=== PATIENT | male | born 1990 | race Two or more races ===

== ENCOUNTER 2022-01-10 00:20 | Emergency (ER) | payer BC, OTHER ==
[~2022-01-10] VITALS: Ht 152.4 cm; Wt 95.3 kg
[2022-01-10 00:22] VITALS: BP 134/83
[2022-01-10] MEDS ORDERED: IBUPROFEN 800 MG TAB PO ONE (03:00)
[2022-01-10] MEDS ORDERED: ACETAMINOPHEN 500 MG TAB PO ONE (03:00)
[2022-01-10 03:29] LABS: Basophils # (auto) 0.1 10 ^3/uL (0-0.2); Basophils % (auto) 1.1 % (0.0-2.0); Eosinophils # (auto) 0 10 ^3/uL (0-0.8); Eosinophils % (auto) 0.2 % (0.0-7.0); Hematocrit 38.9 % (41.0-53.0); Hemoglobin 13.6 g/dL (13.5-17.5); Lymphocytes # (auto) 0.9 10 ^3/uL (0.4-5.4); Lymphocytes % (auto) 7.3 % (10.0-50.0); Mean Corpuscular Hemoglobin 29.1 pg (28.0-32.0); Mean Corpuscular Hgb Conc. 34.9 g/dL (32.0-36.0); Mean Corpuscular Volume 83.5 fL (80.0-100.0); Monocytes # (auto) 0.8 10 ^3/uL (0-1.3); Monocytes % (auto) 6.5 % (0.0-12.0); Neutrophils # (auto) 10.4 10 ^3/uL (1.6-8.6); Neutrophils % (auto) 84.9 % (37.0-80.0); Nucleated Red Blood Cells % 0.1 %; Red Blood Cells 4.66 10^6/uL (4.5-5.90); Red Cell Distribution Width 13.9 % (11.8-14.3); White Blood Cell 12.3 10^3/uL (4.4-10.8)
[2022-01-10 03:44] LABS: BUN/Creatinine Ratio 8.7; Potassium 3.8 mmol/L (3.5-5.1)
[2022-01-10 03:51] LABS: Urine Bacteria NONE SEEN /hpf (None Seen); Urine Blood Negative /uL (Negative); Urine Specific Gravity 1.023 (1.001-1.035); Urine WBC 1 /hpf (0 - 3)
== END 2022-01-10 05:09 | disposition home or self-care (01) ==
LOC: ER 00:20
DX: J06.9 Acute upper respiratory infection, unspecified (principal); J40 Bronchitis, not specified as acute or chronic; Z20.822 Contact with and (suspected) exposure to COVID-19
CPT/HCPCS: 36415; 71045; 80048; 81001; 85025; 87804; 93005

== ENCOUNTER 2024-06-24 14:12 | Emergency (ER) | payer BC, MEDICAID ==
[~2024-06-24] VITALS: Ht 154.9 cm; Wt 91.4 kg
[2024-06-24 16:26] VITALS: BP 137/92; PULSE 113; RESP 16; TEMP 98.4; O2SAT 98
[2024-06-24] MEDS ORDERED: LIDO5DIS21 TOP (16:37)
[2024-06-24] MEDS ORDERED: TRAM50TA2 PO (16:37)
[2024-06-24] MEDS: methylPREDNISolone SOD SUCC 125 MG/2 ML VL IM ONE (16:40)
[2024-06-24] MEDS: KETOROLAC TROMETH 60MG/2ML VIAL IM ONE (16:46)
== END 2024-06-24 16:38 | disposition home or self-care (01) ==
LOC: ER 14:12
DX: M54.12 Radiculopathy, cervical region (principal); M54.50 Low back pain, unspecified; M79.18 Myalgia, other site
CPT/HCPCS: 96372; 99284; J1885; J2919

== ENCOUNTER 2025-02-18 19:08 | Emergency (ER) | payer MEDICAID, OTHER ==
[~2025-02-18] VITALS: Ht 154.9 cm; Wt 87.4 kg
[~2025-02-18 19:08] MED LIST: LIDO5DIS21 TOP; TRAM50TA2 PO
[2025-02-18] MEDS ORDERED: PROMETHAZINE HCL 6.25 MG/5 ML ORAL SYRUP PO ONE (20:00)
--- NOTE | 2025-02-18 20:04 | ED.PDOC ---
SOB-HPI HPI Comments 34-year-old male came to ER due to cough. Patient states he has been having productive cough with whitish to yellowish phlegm for the past 2 weeks. Patient was seen at urgent care and was prescribed amoxicillin which he took for a week. States cough persisted despite the antibiotics, now with shortness a breath and episodes of near syncopal attacks with coughing Chief Complaint: Cough Time Seen by MD: 20:03 Primary Care Provider: None Reviewed notes: Nurses Notes Information Source: Patient Mode of Arrival: Ambulatory Severity: Moderate Timing: Days Duration: Since onset Context: At Rest Associated Signs and Symptoms: Cough Review of Systems REVIEW OF SYSTEMS: No fever, no chills, or fatigue HEENT: No sore throat, no earache, no congestion, no neck pain. Cardiac: No chest pain. No palpitations. Lungs: (+) shortness of breath, (+) cough. GI: No nausea, no vomiting, no diarrhea, no constipation, no abdominal pain : No dysuria, frequency, or urgency. No hematuria. Musculoskeletal: No joint pain , no joint swelling, no extremity edema. Skin: No rash, no itching. Neuro: No headache, no dizziness, no weakness Vital Signs Vital Signs Date Time Temp Pulse Resp B/P (MAP) Pulse Ox O2 Delivery O2 Flow Rate FiO2 02/19/25 02:28 18 97 Room Air* 0 21 02/19/25 02:00 98.3 85 145/91 (109) 98.3 Physical Exam General: Awake, alert and oriented. No acute distress. Skin: Skin in warm, dry and intact. Appropriate color for ethnicity. Nailbeds pink with no cyanosis. HEENT: The head is normocephalic and atraumatic. Conjunctivae are clear without exudates or hemorrhage. Sclera is non-icteric. EOM are intact. No signs of nyst agmus. Eyelids are normal in appearance without swelling or lesions. Oral mucosa is pink and moist Neck: The neck is supple with normal range of motion. No JVD. Cardiac: Heart rate and rhythm are normal. No murmurs, gallops, or rubs are auscultated. Respiratory: No signs of respiratory distress. Lung sounds are clear in all lobes bilaterally without rales, rhonchi, or wheezes. Abdominal: Abdomen is soft, non-tender without distention. Bowel sounds are present and normoactive in all four quadrants. Extremities: Upper and lower extremities are atraumatic in appearance without deformity or edema. Neurological: The patient is awake, alert and oriented to person, place, and time with normal speech. Speech is clear. There is no facial asymmetry. Psychiatric: Appropriate mood and affect. Good judgement and insight. No visual or auditory hallucinations. Past Medical History PAST MEDICAL HISTORY: DM, HTN, UTI'S Surgical History: Denies all surgeries Family History Family History: Reviewed,noncontributory to illness Social History Smoker: Non-Smoker Alcohol: Denies ETOH Use Drugs: Denies Drug Use Lives In: Home Was a procedure done? Was a procedure done?: No Differential Dx Differential Diagnosis: Anxiety, Bronchitis, COPD, Pneumonia, Respiratory Distress, URI X-Ray, Labs, Meds, VS Vital Signs Date Time Temp Pulse Resp B/P (MAP) Pulse Ox O2 Delivery O2 Flow Rate FiO2 02/19/25 02:28 18 97 Room Air* 0 21 02/19/25 02:00 Room Air* 0 21 02/19/25 02:00 98.3 85 20 145/91 (109) 97 98.3 02/18/25 23:07 97.9 92 12 152/83 (106) 96 97.9 02/18/25 19:25 98.9 106 18 144/92 (109) 97 98.9 02/18/25 19:25 18 97 Room Air* 0 21 Current Medications Medications (Trade) Dose Ordered Sig/Isidra Route Start Time Stop Time Status Last Admin Promethazine HCl/ Dextromethorphan (Phenergan-Dm) 5 ml ONCE ONCE PO 02/19/25 02:12 02/19/25 02:13 DC 02/19/25 02:20 EXAM: XY CHEST TWO VIEWS ROUTINE CLINICAL HISTORY: cough TECHNIQUE: Frontal and lateral views of the chest WID: COMPARISON: None FINDINGS: Lines and tubes: None Chest: The heart size and pulmonary vasculature is within normal limits. No pleural effusion, pneumothorax, or consolidation. The osseous structures are grossly intact. IMPRESSION: No acute cardiopulmonary abnormality. Images Reviewed?: Images reviewed and evaluated by me (Independent interpretation of chest x-ray: No acute disease) Time of 1ST Reevaluation: 19:59 Reevaluation 1ST: Unchanged Patient Education/Counseling: Diagnosis, Treatment Family Education/Counseling: No Family Present Departure 1 Departure Time of Disposition: 22:11 Impression: Primary Impression: Cough Disposition: 01 HOME / SELF CARE / HOMELESS Condition: Stable Additional Instructions: ED DISCHARGE INSTRUCTIONS Instructions: Please read all instructions provided in this packet carefully. Although you have been discharged from the Emergency Department, this does not mean that you have a "clean bill of health". No definitive diagnosis for your symptoms has been made today. It is possible that you are in the process of developing a serious illness. This is why you must return to the ED without fail if any new or worsening symptoms (especially if your symptoms include chest pain, trouble breathing, abdominal pain, fever, headache, confusion, trouble seeing, or trouble walking) It is also very important that you see a primary care doctor within the next 3-5 days to follow up. If you are unable to get an appointment, return to the ED for re-evaluation. SHORTNESS OF BREATH EDUCATION Shortness of breath has many causes. Sometimes conditions such as anxiety can lead to shortness of breath. Some people get mild shortness of breath when they exercise. Trouble breathing also can be a symptom of a serious problem, such as asthma, lung disease, emphysema, heart problems, and pneumonia. If your shortness of breath continues, you may need tests and treatment. Watch for any changes in your breathing and other symptoms. Follow-up care is a ramos part of your treatment and safety. Be sure to make and go to all appointments, and call your doctor if you are having problems. It's also a good idea to know your test results and keep a list of the medicines you take. How can you care for yourself at home? Do not smoke or allow others to smoke around you. If you need help quitting, talk to your doctor about stop-smoking programs and medicines. These can increase your chances of quitting for good. Get plenty of rest and sleep. Take your medicines exactly as prescribed. Call your doctor if you think you are having a problem with your medicine. Find healthy ways to deal with stress. Exercise daily. Get plenty of sleep. Eat regularly and well. When should you call for help? Call 911 anytime you think you may need emergency care. For example, call if: You have severe shortness of breath. You have symptoms of a heart attack. These may include: Chest pain or pressure, or a strange feeling in the chest. Sweating. Shortness of breath. Nausea or vomiting. Pain, pressure, or a strange feeling in the back, neck, jaw, or upper belly or in one or both shoulders or arms. Lightheadedness or sudden weakness. A fast or irregular heartbeat. After you call 911, the gluer machine operator may tell you to chew 1 adult-strength or 2 to 4 low-dose aspirin. Wait for an ambulance. Do not try to drive yourself. Call your doctor now or seek immediate medical care if: Your shortness of breath gets worse or you start to wheeze. Wheezing is a high- pitched sound when you breathe. You wake up at night out of breath or have to prop your head up on several pillows to breathe. You are short of breath after only light activity or while at rest. Watch closely for changes in your health, and be sure to contact your doctor if: You do not get better over the next 1 to 2 days. Credits for Shortness of Breath: Care Instructions Current as of: May 13, 2024 Author: [employer] Staff e-Prescriptions Benzonatate (Benzonatate) 200 Mg Cap 1 CAP PO TID for 5 Days, #30 CAP Prov: AMANDA COLE MD 02/18/25 Albuterol Sulfate (VENTOLIN MDI) 90 Mcg Ih 90 MCG IN TIDPRN PRN for 3 Days, #1 INH Prov: AMANDA COLE MD 02/18/25 Comments Patient well-appearing, nontoxic. Vital signs stable. Advised prompt follow-up with PCP, return to the ED with any new, worsening or concerning symptoms. Critical Care Note Critical Care Time?: No Stability Stability form required: No Heart Score Heart Score: Heart Score Response (Comments) Value History N/A 0 EKG N/A 0 Age N/A 0 Risk Factors N/A 0 Troponin N/A 0 Total 0 I personally scribed for AMANDA COLE MD ([email or web address]) on 02/18/25 at 20:04. Electronically submitted by Trevon Figueroa ([employer]). I personally scribed for AMANDA COLE MD ([email or web address]) on 02/18/25 at 21:01. Electronically submitted by Trevon Figueroa ([employer]). AMANDA COLE MD February 18, 2025 20:04
--- NOTE | 2025-02-18 20:32 | DVH ---
EXAM: XY CHEST TWO VIEWS ROUTINE CLINICAL HISTORY: cough TECHNIQUE: Frontal and lateral views of the chest WID: COMPARISON: None FINDINGS: Lines and tubes: None Chest: The heart size and pulmonary vasculature is within normal limits. No pleural effusion, pneumothorax, or consolidation. The osseous structures are grossly intact. IMPRESSION: No acute cardiopulmonary abnormality.
[2025-02-18] MEDS ORDERED: ALBUAER3 IN (22:13)
[2025-02-18] MEDS ORDERED: BENZ200C64 PO (22:13)
[2025-02-19 02:00] VITALS: BP 145/91; PULSE 85; TEMP 98.3
[2025-02-19] MEDS: PROMETHAZINE-DM 5 ML ORAL SYRUP PO ONE (02:20)
[2025-02-19] MEDS: ALBUTEROL SULF 2.5 MG/0.5ML(0.5%) NEB SOLN NEB ONE (02:27)
[2025-02-19 02:28] VITALS: RESP 18; O2SAT 97
== END 2025-02-19 02:47 | disposition home or self-care (01) ==
LOC: ER 19:12
DX: R05.9 Cough, unspecified (principal); R06.02 Shortness of breath; E11.9 Type 2 diabetes mellitus without complications; I10 Essential (primary) hypertension; Z87.440 Personal history of urinary (tract) infections
CPT/HCPCS: 71046; 94640

== ENCOUNTER 2025-02-22 09:14 | Inpatient (IN) | payer MEDICAID ==
[~2025-02-22] VITALS: Ht 154.9 cm; Wt 88.3 kg
[2025-02-22] MEDS: ACCU-CHEK COMFORT CURVE STRIP VI SCH (01:44)
[~2025-02-22 09:14] MED LIST changes: +ALBUAER3 IN; +BENZ200C64 PO
--- NOTE | 2025-02-22 10:20 | ED.PDOC ---
SOB-HPI HPI Comments 34 year old male presents to the ED with a chief complaint of shortness of breath onset 1 month. Patient states he began experiencing shortness of breath with cough 1 month ago, was seen at urgent care 3 weeks ago and placed on antibiotics. Patient finished antibiotics with no improvement of symptoms. Came to ED on 02/18/25, was prescribed inhaler, has not improved symptoms. Patient is now experiencing substernal chest pain, as well as nausea/vomiting. PMHx HTN, DM. Denies dizziness,headache, dysuria, hematuria, hematemesis, congestion. No other symptoms or modifying factors present at this time. Chief Complaint: Shortness of Breath Time Seen by MD: 10:04 Primary Care Provider: NONE Reviewed notes: Medications, Allergies Information Source: Patient Mode of Arrival: Ambulatory Severity: Moderate Timing: Months Duration: Since onset Context: At Rest PE Risk Factors: None History of: Recent Antibiotic Prehospital treatment: None Modifying Factors: Nothing Associated Signs and Symptoms: Cough, Chest Pain Quality: Pressure Radiation: No Radiation Location: Substernal Past Medical History PAST MEDICAL HISTORY: DM, HTN, UTI'S Surgical History: Denies all surgeries Family History Family History: Reviewed,noncontributory to illness Social History Smoker: Non-Smoker Alcohol: Denies ETOH Use Drugs: Denies Drug Use Lives In: Home Constitutional: denies: chills, diaphoresis, fatigue, fever, malaise, sweats, weakness, others EENTM: denies: blurred vision, double vision, ear bleeding, ear discharge, ear drainage, ear pain, ear ringing, eye pain, eye redness, hearing loss, mouth pain, mouth swelling, nasal discharge, nose bleeding, nose congestion, nose pain, photophobia, tearing, throat pain, throat swelling, voice changes, others Respiratory: reports: cough, shortness of breath; denies: hemoptysis, orthopnea, SOB at rest, SOB with excertion, stridor, wheezing, others Cardiovascular: reports: chest pain; denies: dizzy spells, diaphoresis, Dyspnea on exertion, edema, irregular heart beat, left arm pain, lightheadedness, pal pitations, PND, syncope, others Gastrointestinal: reports: nausea, vomiting; denies: abdomen distended, abdominal pain, blood streaked bowels, constipated, diarrhea, dysphagia, difficulty swallowing, hematemesis, melena, poor appetite, poor fluid intake, rectal bleeding, rectal pain, others Genitourinary: denies: burning, dysuria, flank pain, frequency, hematuria, incontinence, penile discharge, penile sore, pain, testicle pain, testicle swelling, urgency, others Neurological: denies: dizziness, fainting, headache, left sided numbness, left sided weakness, numbness, paresthesia, pre-existing deficit, right sided numbness, right sided weakness, seizure, speech problems, tingling, tremors, weakness, others Musculoskeletal: denies: back pain, gout, joint pain, joint swelling, muscle pain, muscle stiffness, neck pain, others Integumetry: denies: bruises, change in color, change in hair/nails, dryness, laceration, lesions, lumps, rash, wounds, others Allergic/Immunocompromised: denies: Difficulty Healing, Frequent Infections, Hives, Itching, others Hematologic/Lymphatic: denies: anemia, blood clots, easy bleeding, easy bruising, swollen glands, others Endocrine: denies: excessive hunger, excessive sweating, excessive thirst, excessive urination, flushing, intolerance to cold, intolerance to heat, unexp lained weight gain, unexplained weight loss, others Psychiatric: denies: anxiety, bipolar disorder, depression, hopeless, panic disorder, schizophrenia, sleepless, suicidal, others All Other Systems: Reviewed and Negative Physical Exam General Appearance: Moderate Distress, Normal HEENT: Normal ENT Inspection, Pharynx Normal, TMs Normal Neck: Full Range of Motion, Non-Tender, Normal, Normal Inspection Respiratory: Chest Non-Tender, No Accessory Muscle Use, Other (Coarse breath sounds) Cardiovascular: No Edema, No JVD, No Murmur, No Gallop, Normal Peripheral Pulses, Regular Rate/Rhythm Breast Exam: Deferred Gastrointestinal: No Organomegaly, Non Tender, No Pulsatile Mass, Normal Bowel Sounds, Soft Genitalia: Deferred Pelvic: Deferred Rectal: Deferred Extremities: No calf tenderness, Normal capillary refill, Normal inspection, Normal range of motion, Non-tender, No pedal edema Musculoskeletal : Apperance: Normal Neurologic: Alert, field specialist II-XII nml as Tested, No Motor Deficits, Normal Affect, Normal Mood, No Sensory Deficits Cerebellar Function: Normal Reflexes: Normal Skin: Dry, Normal Color, Warm Peripheral Pulses: 3+ Radial (R), 3+ Radial (L) Lymphatic: No Adenopathy EKG EKG : Pulse Rate (adult): 103 Cardiac Rhythm: NSR Was a procedure done? Was a procedure done?: No Differential Dx Differential Diagnosis: Anxiety, Asthma, Bronchitis, CHF, COPD X-Ray, Labs, Meds, VS Vital Signs Date Time Temp Pulse Resp B/P (MAP) Pulse Ox O2 Delivery O2 Flow Rate FiO2 02/22/25 11:44 103 02/22/25 10:30 114 20 96 Room Air* 0 21 02/22/25 10:30 99.8 114 20 117/80 (92) 96 99.8 02/22/25 10:29 18 96 Room Air* 0 21 02/22/25 09:29 103 02/22/25 09:23 98.8 110 20 131/88 (102) 94 98.8 Lab Test 02/22/25 11:14 02/22/25 10:24 02/22/25 09:26 Range/Units Troponin I High Sensitivity < 3 L < 3 L </=54 ng/L White Blood Count 11.5 H 4.4-10.8 10^3/uL Red Blood Count 5.36 4.5-5.90 10^6/uL Hemoglobin 15.2 13.5-17.5 g/dL Hematocrit 45.1 41.0-53.0 % Mean Corpuscular Volume 84.3 80.0-100.0 fL Mean Corpuscular Hemoglobin 28.4 28.0-32.0 pg Mean Corpuscular Hemoglobin Concent 33.7 32.0-36.0 g/dL Red Cell Distribution Width 13.6 11.8-14.3 % Platelet Count 330 140-450 10^3/uL Mean Platelet Volume 8.3 6.9-10.8 fL Neutrophils (%) (Auto) 82.7 H 37.0-80.0 % Lymphocytes (%) (Auto) 10.4 10.0-50.0 % Monocytes (%) (Auto) 5.5 0.0-12.0 % Eosinophils (%) (Auto) 0.8 0.0-7.0 % Basophils (%) (Auto) 0.6 0.0-2.0 % Neutrophils # (Auto) 9.5 H 1.6-8.6 10 ^3/uL Lymphocytes # (Auto) 1.2 0.4-5.4 10 ^3/uL Monocytes # (Auto) 0.6 0-1.3 10 ^3/uL Eosinophils # (Auto) 0.1 0-0.8 10 ^3/uL Basophils # (Auto) 0.1 0-0.2 10 ^3/uL Nucleated Red Blood Cells 0.0 % D-Dimer, Quantitative 0.23 0.0-0.49 mg/L FEU Sodium Level 138 136-145 mmol/L Potassium Level 3.9 3.5-5.1 mmol/L Chloride Level 104 98-107 mmol/L Carbon Dioxide Level 25 20-31 mmol/L Anion Gap 9 5-15 Blood Urea Nitrogen 8 L 9-23 mg/dL Creatinine 0.92 0.700-1.30 mg/dL Glomerular Filtration Rate Calc 111 >90 mL/min BUN/Creatinine Ratio 8.7 L 10.0-20.0 Serum Glucose 158 H 74-106 mg/dL Calcium Level 10.0 8.7-10.4 mg/dL POC Glucose 186 H 70-106 mg/dl Current Medications Medications (Trade) Dose Ordered Sig/Isidra Route Start Time Stop Time Status Last Admin Albuterol (Ventolin Medneb) 5 mg ONCE ONCE NEB 02/22/25 10:15 02/22/25 10:17 DC 02/22/25 10:28 Ipratropium [place] (Atrovent Medneb) 0.5 mg ONCE ONCE NEB 02/22/25 10:15 02/22/25 10:17 DC 02/22/25 10:28 Ceftriaxone Sodium 50 ml @ 100 mls/hr ONCE ONCE IV 02/22/25 10:15 02/22/25 10:44 DC 02/22/25 10:36 Methylprednisolone Sodium Succinate (Solu Medrol) 40 mg ONCE ONCE IV 02/22/25 11:00 02/22/25 11:01 DC 02/22/25 10:51 Patient alert. Complaining of shortness a breath. Has been battling congestion for three weeks. Vitals stable. He does have increased heart rate. Blood sugar elevated. Recently diagnosed with diabetes. WBC slightly elevated. Hemoglobin within normal limits. Cardiac marker within normal limits. Establish intravenous access. Possible pneumonitis. Was given Rocephin. Was given azithromycin. Was given steroid. Was given breathing treatment. Reviewed his previous visit to other facilities. He was seen in this ER recently. Explained to the patient. Continue monitoring. [place] [id number] Ph: [phone] DIAGNOSTIC IMAGING Diagnostic Imaging Report : [id number] Signed PATIENT: HUMAIRA SIMON ACCT: [id number] UNIT: [id number] : 1990 LOC: ER ROOM / BED: / AGE / SEX: 34 / M ADM STATUS: REG ER SERVICE 1015 ORDERING PHYSICIAN: EDEN WOODRUFF MD PROCEDURE(s): CXRP - CHEST PORTABLE REASON: sob ORDER NUMBER(s): [id number], ACCESSION NUMBER(s): [id number] EXAM: XY CHEST PORTABLE Indication: sob Technique: Single frontal view of the chest was obtained Comparison: CHEST XRAY 1 VIEW on DOS: 01/10/22, CXR1 on DOS: 01/10/22 FINDINGS: Lines and Tubes: None Lungs: No focal consolidation. Pleura: No effusion. No pneumothorax. Cardiomediastinal contours: Unremarkable Bones: No acute osseous abnormality. IMPRESSION: No acute cardiopulmonary disease. ATED BY: JONATHAN SIMON MD DICTATED DATE/TIME: 02/22/251203 SIGNED BY: JONATHAN SIMON MD SIGNED DATE/TIME: 02/22/251203 CC: Time of 1ST Reevaluation: 10:34 Reevaluation 1ST: Unchanged Patient Education/Counseling: Diagnosis, Treatment, Prognosis Family Education/Counseling: No Family Present Departure 1 Departure Time of Disposition: 11:47 Impression: Primary Impression: Pneumonitis Additional Impression: Uncontrolled diabetes mellitus Qualified Codes: E13.65 - Other specified diabetes mellitus with hyperglyce mouna Disposition: 09 ADMITTED INPATIENT Admit to: Med Surg Condition: Guarded Critical Care Note Critical Care Time?: Yes (45 min-critical care time only) Critical care comment: Shortness a breath upon ambulating started steroid breathing treatment Stability Stability form required: No Heart Score Heart Score: Heart Score Response (Comments) Value History N/A 0 EKG N/A 0 Age N/A 0 Risk Factors N/A 0 Troponin N/A 0 Total 0 I personally scribed for EDEN WOODRUFF MD ([email or web address]) on 02/22/25 at 10:20. Electronically submitted by Layne Joshi ([email or web address]). I personally scribed for EDEN WOODRUFF MD ([email or web address]) on 02/22/25 at 11:44. Electronically submitted by Layne Joshi ([email or web address]). I personally scribed for EDEN WOODRUFF MD ([email or web address]) on 02/22/25 at 13:02. Electronically submitted by Layne Joshi ([email or web address]). EDEN WOODRUFF MD February 22, 2025 10:20
[2025-02-22] MEDS: ALBUTEROL SULF 2.5 MG/0.5ML(0.5%) NEB SOLN NEB ONE (10:28)
[2025-02-22] MEDS: IPRATROPIUM BROM 0.5 MG/2.5ML INH SOL NEB ONE (10:28)
[2025-02-22] MEDS: ALBUTEROL SULF 2.5 MG/0.5ML(0.5%) NEB SOLN ONE (10:29)
[2025-02-22] MEDS: IPRATROPIUM BROM 0.5 MG/2.5ML INH SOL ONE (10:29)
[2025-02-22 10:30] VITALS: PULSE 114; RESP 20; O2SAT 96
[2025-02-22] MEDS: cefTRIAXone 1GM/50ML D5W 50 ML IV ONE (10:36)
[2025-02-22] MEDS: methylPREDNISolone SOD SUCC 125 MG/2 ML VL IV ONE (10:36)
[2025-02-22 10:39] LABS: Basophils # (auto) 0.1 10 ^3/uL (0-0.2); Basophils % (auto) 0.6 % (0.0-2.0); Eosinophils # (auto) 0.1 10 ^3/uL (0-0.8); Eosinophils % (auto) 0.8 % (0.0-7.0); Hematocrit 45.1 % (41.0-53.0); Hemoglobin 15.2 g/dL (13.5-17.5); Lymphocytes # (auto) 1.2 10 ^3/uL (0.4-5.4); Lymphocytes % (auto) 10.4 % (10.0-50.0); Mean Corpuscular Hemoglobin 28.4 pg (28.0-32.0); Mean Corpuscular Hgb Conc. 33.7 g/dL (32.0-36.0); Mean Corpuscular Volume 84.3 fL (80.0-100.0); Monocytes # (auto) 0.6 10 ^3/uL (0-1.3); Monocytes % (auto) 5.5 % (0.0-12.0); Neutrophils # (auto) 9.5 10 ^3/uL (1.6-8.6); Neutrophils % (auto) 82.7 % (37.0-80.0); Platelet Count (auto) 330 10^3/uL (140-450); Red Blood Cells 5.36 10^6/uL (4.5-5.90); Red Cell Distribution Width 13.6 % (11.8-14.3); White Blood Cell 11.5 10^3/uL (4.4-10.8)
[2025-02-22 10:47] LABS: Chloride 104 mmol/L (98-107); Potassium 3.9 mmol/L (3.5-5.1); Sodium 138 mmol/L (136-145)
[2025-02-22 10:48] LABS: Anion Gap 9 (5-15); Carbon Dioxide 25 mmol/L (20-31)
[2025-02-22] MEDS: methylPREDNISolone SOD SUCC 40 MG/ML VL IV ONE (10:51)
[2025-02-22 10:53] LABS: BUN/Creatinine Ratio 8.7 (10.0-20.0); Blood Urea Nitrogen 8 mg/dL (9-23); Glucose 158 mg/dL (74-106)
--- NOTE | 2025-02-22 12:06 | DVH ---
EXAM: XY CHEST PORTABLE Indication: sob Technique: Single frontal view of the chest was obtained Comparison: CHEST XRAY 1 VIEW on DOS: 01/10/22, CXR1 on DOS: 01/10/22 FINDINGS: Lines and Tubes: None Lungs: No focal consolidation. Pleura: No effusion. No pneumothorax. Cardiomediastinal contours: Unremarkable Bones: No acute osseous abnormality. IMPRESSION: No acute cardiopulmonary disease.
[2025-02-22] MEDS ORDERED: MORPHINE SULFATE INJ 2 MG/ml SYRG IV PRN (13:00)
[2025-02-22] MEDS ORDERED: HYDROcodone-ACET 5/325MG TAB PO PRN (13:00)
[2025-02-22] MEDS ORDERED: DOCUSATE SOD 100 MG CAP PO PRN (13:00)
[2025-02-22] MEDS ORDERED: METF-372 PO (13:04)
[2025-02-22] MEDS ORDERED: GLIP5TAB21 PO (13:04)
[2025-02-22] MEDS ORDERED: LISI10TA34 PO (13:04)
[2025-02-22] MEDS ORDERED: DEXTROSE (50%) 50ML SYRG IV PRN (13:15)
--- NOTE | 2025-02-22 13:23 | DVHHP2 ---
History of Present Illness Reason for Visit: Shortness of breath History of Present Illness Chencho Bhatti is a 34-year-old male with past medical history of hypertension, and diabetes, who came in for cough and shortness of breath. Patient states he has had the cough for about 1 months. he went to urgent care weeks ago, was gi roxane antibiotics. Thought he was doing better, then the cough came back. He came to ER on 02/18/2025 for the cough. He was given a prescription and sent home. He came back today stating his symptoms have not improved. Cardiovascular: HTN Endocrine: Diabetes Past Surgical History: None Smoke: No ALCOHOL: none Drugs: None Lives: with Family Domestic Violence: Neg Review of Systems Constitutional: No: Fever, Chills, Sweats, Weakness, Malaise, Other Eyes: No: Pain, Vision change, Conjunctivae inflammation, Eyelid inflammation, Other, Redness ENT: No: Ear pain, Ear discharge, Nose pain, Nose discharge, Nose congestion, Mouth pain, Mouth swelling, Throat pain, Throat swelling, Other Respiratory: Cough, Shortness of breath, SOB with excertion, Wheezing, Sputum (yellow/green); No: Dry, Hemoptysis, Pleuritic Pain, Wheezing, Other Cardiovascular: No: Chest Pain, Palpitations, Orthopnea, Paroxysmal Noc. Dyspnea, Edema, Lt Headedness, Other Gastrointestinal: No: Nausea, Vomiting, Abdominal Pain, Diarrhea, Constipation, Melena, Hematochezia, Other Genitourinary: No Dysuria, No Frequency, No Incontinence, No Hematuria, No Retention, No Other Musculoskeletal: No: other, neck pain, shoulder pain, arm pain, back pain, hand pain, leg pain, foot pain Skin: No: Rash, Lesions, Jaundice, Bruising, Other Neurological: No: Weakness, Numbness, Incoordination, Change in speech, Confusion, Seizures, Other Allergies: Coded Allergies: NO KNOWN ALLERGIES (Unverified , 01/10/22) Medications Current Medications Medications Dose Ordered Sig/Isidra Route Start Time Stop Time Status Last Admin Dose Admin Acetaminophen/ Hydrocodone Bitart 1 tab Q4HP PRN PO 02/22/25 13:00 UNV Ondansetron HCl 4 mg Q4HP PRN IV 02/22/25 13:00 UNV Docusate Sodium 100 mg BIDPRN PRN PO 02/22/25 13:00 UNV Acetaminophen 650 mg Q6HP PRN PO 02/22/25 13:00 UNV Morphine Sulfate 2 mg Q4HPRN PRN IV 02/22/25 13:00 UNV Ceftriaxone Sodium 50 ml @ 100 mls/hr DAILY@09 IV 02/23/25 09:00 UNV Albuterol 2.5 mg Q6HWA NEB 02/22/25 18:00 UNV Ipratropium D [place] 0.5 mg Q6HWA NEB 02/22/25 18:00 UNV Methylprednisolone Sodium Succinate 40 mg BID IV 02/22/25 22:00 UNV Exam Vital Signs Vital Signs Date Time Temp Pulse Resp B/P (MAP) Pulse Ox O2 Delivery O2 Flow Rate FiO2 02/22/25 11:44 103 02/22/25 10:30 20 96 Room Air* 0 21 02/22/25 10:30 99.8 117/80 (92) 99.8 General Appearance: Alert, Oriented X3, Cooperative, mild distress HEENT: Atraumatic, PERRLA Respiratory: Other (Diminshed breath sounds, wheezing) Cardiovascular: Regular rate, Normal S1, Normal S2, No murmurs Abdominal: Normal bowel sounds, Soft, No tenderness Extremities: No clubbing, No cyanosis, No edema, Normal pulses, No tenderness/swelling Skin: No rashes, No breakdown, No significant lesion Neuro: Normal gait, Normal speech, Strength at 5/5 X4 ext Psych/Mental Status: Mental status NL, Mood NL Labs/Xrays Labs Test 02/22/25 11:14 02/22/25 10:24 02/22/25 09:26 Range/Units Troponin I High Sensitivity < 3 L </=54 ng/L White Blood Count 11.5 H 4.4-10.8 10^3/uL Red Blood Count 5.36 4.5-5.90 10^6/uL Hemoglobin 15.2 13.5-17.5 g/dL Hematocrit 45.1 41.0-53.0 % Mean Corpuscular Volume 84.3 80.0-100.0 fL Mean Corpuscular Hemoglobin 28.4 28.0-32.0 pg Mean Corpuscular Hemoglobin Concent 33.7 32.0-36.0 g/dL Red Cell Distribution Width 13.6 11.8-14.3 % Platelet Count 330 140-450 10^3/uL Mean Platelet Volume 8.3 6.9-10.8 fL Neutrophils (%) (Auto) 82.7 H 37.0-80.0 % Lymphocytes (%) (Auto) 10.4 10.0-50.0 % Monocytes (%) (Auto) 5.5 0.0-12.0 % Eosinophils (%) (Auto) 0.8 0.0-7.0 % Basophils (%) (Auto) 0.6 0.0-2.0 % Neutrophils # (Auto) 9.5 H 1.6-8.6 10 ^3/uL Lymphocytes # (Auto) 1.2 0.4-5.4 10 ^3/uL Monocytes # (Auto) 0.6 0-1.3 10 ^3/uL Eosinophils # (Auto) 0.1 0-0.8 10 ^3/uL Basophils # (Auto) 0.1 0-0.2 10 ^3/uL Nucleated Red Blood Cells 0.0 % D-Dimer, Quantitative 0.23 0.0-0.49 mg/L FEU Sodium Level 138 136-145 mmol/L Potassium Level 3.9 3.5-5.1 mmol/L Chloride Level 104 98-107 mmol/L Carbon Dioxide Level 25 20-31 mmol/L Anion Gap 9 5-15 Blood Urea Nitrogen 8 L 9-23 mg/dL Creatinine 0.92 0.700-1.30 mg/dL Glomerular Filtration Rate Calc 111 >90 mL/min BUN/Creatinine Ratio 8.7 L 10.0-20.0 Serum Glucose 158 H 74-106 mg/dL Calcium Level 10.0 8.7-10.4 mg/dL POC Glucose 186 H 70-106 mg/dl EXAM: XY CHEST PORTABLE FINDINGS: Lines and Tubes: None Lungs: No focal consolidation. Pleura: No effusion. No pneumothorax. Cardiomediastinal contours: Unremarkable Bones: No acute osseous abnormality. IMPRESSION: No acute cardiopulmonary disease. 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 Procedure Category Date Status Time Admit ADMIT 02/22/25 Transmitted 13:00 Code Status CODE 02/22/25 Transmitted 13:00 2 Gm Sodium Diet DIET 02/22/25 Transmitted Lunch Hydrocodone-Acet PHA 02/22/25 Logged 5/325mg Tab ([place] 13:00 Ondansetron Hcl PHA 02/22/25 Logged (Zofran) 13:00 Docusate Sodium PHA 02/22/25 Logged Capsule (Colace 13:00 Complete Blood Count LAB 02/23/25 Verified 04:00 Comprehensive LAB 02/23/25 Verified Metabolic Panel 04:00 Condition: Serious SAMMIE 02/22/25 In Process 13:00 Acetaminophen Tablet PHA 02/22/25 Logged (Tylenol Tablet) 13:00 Morphine Sulfate PHA 02/22/25 Logged Injection 13:00 Ceftriaxone 1gm/50ml PHA 02/23/25 Logged D5w (Rocephin) 09:00 Albuterol Medneb PHA 02/22/25 Logged (Ventolin Medneb) 18:00 Ipratropium Medneb PHA 02/22/25 Logged (Atrovent Medneb) 18:00 Methylprednisolone PHA 02/22/25 Logged Sod Succ (Solu Medrol 22:00 Glucose Blood PHA 02/22/25 Logged (Accu-Chek Comfort 17:00 Insulin R (Human) PHA 02/22/25 Logged (Insulin R) 22:00 Moderate Insulin Ss PHA 02/22/25 Transmitted 17:00 Dextrose 50% Syringe PHA 02/22/25 Transmitted 13:15 Glipizide Tablet PHA 02/22/25 Verified (Glucotrol Tablet) 22:00 (Nf) Lisinopril PHA 02/23/25 Verified 10:00 Date of Service: February 22, 2025 Billing Provider: GENO MA Common Visit Codes: [id number] INP/OBS CARE (MOD) GENO MA February 22, 2025 13:23
[2025-02-22 14:13] VITALS: O2SAT 97
[2025-02-22 14:14] VITALS: BP 127/75; PULSE 105; RESP 16; TEMP 99.5; O2SAT 97
[2025-02-22] MEDS: InsuLIN REG 1unit/0.01ml Soln (100units/ml) SC SCH ×2 (17:05→22:00)
[2025-02-22 18:37] VITALS: PULSE 100; RESP 18; O2SAT 95
[2025-02-22] MEDS: IPRATROPIUM BROM 0.5 MG/2.5ML INH SOL NEB SCH (18:37)
[2025-02-22] MEDS: ALBUTEROL SULF 2.5 MG/0.5ML(0.5%) NEB SOLN NEB SCH (18:37)
[2025-02-22 18:43] VITALS: PULSE 102; RESP 18; O2SAT 99
[2025-02-22] MEDS: AZITHROMYCIN 500MG/ 250ML 250 ML IV ONE (19:30)
[2025-02-22] MEDS ORDERED: methylPREDNISolone SOD SUCC 125 MG/2 ML VL IV SCH (22:00)
[2025-02-22] MEDS ORDERED: methylPREDNISolone SOD SUCC 40 MG/ML VL IV SCH (22:00)
[2025-02-22] MEDS: glipiZIDE 5 MG TAB PO SCH (22:00)
[2025-02-22] MEDS: methylPREDNISolone SOD SUCC 40 MG/ML VL IV SCH (22:00)
[2025-02-23] VITALS (9 sets, daily range): BP systolic 79–122; BP diastolic 45–69; PULSE 70–91; RESP 16–24; TEMP 97.5–98.1; O2SAT 94–100
[2025-02-23] MEDS: ACETAMINOPHEN 325 MG TAB PO PRN (01:47)
[2025-02-23 04:59] LABS: Basophils # (auto) 0 10 ^3/uL (0-0.2); Basophils % (auto) 0.2 % (0.0-2.0); Eosinophils # (auto) 0.1 10 ^3/uL (0-0.8); Eosinophils % (auto) 0.5 % (0.0-7.0); Hematocrit 41.2 % (41.0-53.0); Hemoglobin 13.7 g/dL (13.5-17.5); Lymphocytes # (auto) 2.7 10 ^3/uL (0.4-5.4); Lymphocytes % (auto) 23.4 % (10.0-50.0); Mean Corpuscular Hemoglobin 28.4 pg (28.0-32.0); Mean Corpuscular Hgb Conc. 33.3 g/dL (32.0-36.0); Mean Corpuscular Volume 85.2 fL (80.0-100.0); Monocytes % (auto) 8.6 % (0.0-12.0); Neutrophils # (auto) 7.7 10 ^3/uL (1.6-8.6); Neutrophils % (auto) 67.3 % (37.0-80.0); Nucleated Red Blood Cells % 0.1 %; Platelet Count (auto) 300 10^3/uL (140-450); Red Blood Cells 4.83 10^6/uL (4.5-5.90); White Blood Cell 11.5 10^3/uL (4.4-10.8)
[2025-02-23 05:41] LABS: Albumin 4.5 g/dL (3.2-4.8); Alkaline Phosphatase 64 U/L (46-116); Anion Gap 11 (5-15); Aspartate Aminotransferase 19 U/L (13-40); BUN/Creatinine Ratio 13.5 (10.0-20.0); Bilirubin, Total 0.9 mg/dL (0.2-1.0); Blood Urea Nitrogen 14 mg/dL (9-23); Carbon Dioxide 26 mmol/L (20-31); Chloride 101 mmol/L (98-107); Potassium 3.9 mmol/L (3.5-5.1); Sodium 138 mmol/L (136-145); Total Protein 6.8 g/dL (5.7-8.2)
[2025-02-23 05:43] LABS: Alanine Aminotransferase 53 U/L (7-40); Glucose 166 mg/dL (74-106)
[2025-02-23] MEDS: cefTRIAXone 1GM/50ML D5W 50 ML IV SCH (08:48)
[2025-02-23] MEDS: ONDANSETRON HCL 4 MG/2 ML VIAL IV PRN (08:48)
--- NOTE | 2025-02-23 08:59 | ECG ---
[facility] Test Date: 2025-02-22 Test Time: 09:29:03 Pat Name: HUMAIRA SIMON Department: ER Room: [facility] Gender: M Drywall Contractor: YU : 1990 Requested By: EDEN WOODRUFF Order Number: [id number] Reading MD: Daquan Abebe Measurements Intervals Ward Rate: 103 P: 79 OH: 126 QRS: 80 QRSD: 76 T: 36 QT: 322 QTc: 422 Interpretive Statements Sinus tachycardia Electronically Signed On 02-24-2025 12:45:15 PDT by Daquan Abebe Please click the below link to view image of tracing.
[2025-02-23 09:06] LABS: Rapid Influenza A Negative (Negative); Rapid Influenza B Negative (Negative)
[2025-02-23 09:07] LABS: COVID19 ANTIGEN SOFIA FIA NEGATIVE (NEGATIVE)
[2025-02-23] MEDS ORDERED: PATIENTS OWN MEDICATION (Lisinopril 1 TAB) PO SCH (10:00)
[2025-02-23] MEDS: AZITHROMYCIN 500MG/ 250ML 250 ML IV SCH (10:20)
[2025-02-23] MEDS: LISINOPRIL 20 MG TAB PO SCH (10:23)
--- NOTE | 2025-02-23 12:18 | DVHPN2 ---
Subjective 34-year-old male with history of hypertension diabetes who had upper respiratory infection for few days now and then he was seen here in ER was sent home on an inhaler but he did not get better so he came back Chest x-ray is negative for pneumonia He is also negative for COVID and influenza He is still having significant cough productive of yellow sputum Changes from previous H/P or p: Changes Eyes: No Pain, No Vision change, No Conjunctivae inflammation, No Eyelid inflammation, No Other, No Redness ENT: No Ear pain, No Ear discharge, No Nose pain, No Nose discharge, No Nose congestion, No Mouth pain, No Mouth swelling, No Throat pain, No Throat swelling, No Other Cardiovascular: No Chest Pain, No Palpitations, No Orthopnea, No Paroxysmal Noc. Dyspnea, No Edema, No Lt Headedness, No Other Respiratory: Cough; No Dry; Shortness of breath, SOB with excertion, Wheezing; No Hemoptysis, No Pleuritic Pain; Sputum (yellow/green); No Other Gastrointestinal: No Nausea, No Vomiting, No Abdominal Pain, No Diarrhea, No Constipation, No Melena, No Hematochezia, No Other Genitourinary: No Dysuria, No Frequency, No Incontinence, No Hematuria, No Retention, No Other Musculoskeletal: No other, No neck pain, No shoulder pain, No arm pain, No back pain, No hand pain, No leg pain, No foot pain Skin: No Rash, No Lesions, No Jaundice, No Bruising, No Other Objective Vitals Vital Signs Date Time Temp Pulse Resp B/P (MAP) Pulse Ox O2 Delivery O2 Flow Rate FiO2 02/23/25 10:23 108/57 02/23/25 08:54 97.7 70 24 98 97.7 02/23/25 06:02 Room Air* 0 21 Intake/Output Intake and Output 02/23/25 07:00 Intake Total 50 ml Balance 50 ml Intake IV Total 50 ml General Appearance: Alert, Oriented X3, Cooperative, mild distress Lungs: Clear to auscultation, Normal air movement, Other (Clear to auscultation bilateral) Cardiovascular: Regular rate, Normal S1, Normal S2, No murmurs Abdomen: Normal bowel sounds, Soft, No tenderness Extremities: No edema Medications Current Medications Medications Dose Ordered Sig/Isidra Route Start Time Stop Time Status Last Admin Dose Admin Acetaminophen/ Hydrocodone Bitart 1 tab Q4HP PRN PO 02/22/25 13:00 Ondansetron HCl 4 mg Q4HP PRN IV 02/22/25 13:00 02/23/25 08:48 4 MG Docusate Sodium 100 mg BIDPRN PRN PO 02/22/25 13:00 Acetaminophen 650 mg Q6HP PRN PO 02/22/25 13:00 02/23/25 01:47 650 MG Morphine Sulfate 2 mg Q4HPRN PRN IV 02/22/25 13:00 Ceftriaxone Sodium 50 ml @ 100 mls/hr DAILY@09 IV 02/23/25 09:00 02/23/25 08:48 100 MLS/HR Albuterol 2.5 mg Q6HWA NEB 02/22/25 18:00 02/23/25 06:08 2.5 MG Ipratropium [place] 0.5 mg Q6HWA NEB 02/22/25 18:00 02/23/25 06:09 0.5 MG Methylprednisolone Sodium Succinate 40 mg BID IV 02/22/25 22:00 UNV Diagnostic Test (Pha) 1 strip ACHS 02/22/25 17:00 02/23/25 11:30 1 STRIP Insulin Human Regular HS SC 02/22/25 22:00 Insulin Human Regular AC SC 02/22/25 17:00 02/23/25 06:19 2 UNITS Dextrose 50 ml UD PRN IV 02/22/25 13:15 Glipizide 5 mg BID PO 02/22/25 22:00 02/23/25 10:22 5 MG Patient Own Medication 1 tab DAILY PO 02/23/25 10:00 UNV Lisinopril 10 mg DAILY PO 02/23/25 10:00 02/23/25 10:23 10 MG Methylprednisolone Sodium Succinate 40 mg BID IV 02/22/25 22:00 02/23/25 08:48 40 MG Azithromycin 250 ml @ 125 mls/hr DAILY IV 02/23/25 10:00 02/23/25 10:20 125 MLS/HR Laboratory Results Laboratory Tests 02/23/25 04:31 Chemistry Test 02/23/25 04:31 Albumin 4.5 g/dL (3.2-4.8) Calcium Level 9.0 mg/dL (8.7-10.4) Total Protein 6.8 g/dL (5.7-8.2) LFT Test 02/23/25 04:31 Alanine Aminotransferase (ALT) 53 U/L (7-40) H Alkaline Phosphatase 64 U/L (46-116) Aspartate Amino Transferase (AST) 19 U/L (13-40) Total Bilirubin 0.9 mg/dL (0.2-1.0) Assessment/Plan Assessment/Plan Acute upper respiratory infection Acute bronchitis Hypertension Type 2 diabetes Plan Continue IV antibiotics Oxygen as needed Med neb treatments as needed Robitussin DM as needed IV steroids Hold oral diabetes medications Start Lantus 10 units twice a day Accu-Cheks and sliding scale regular insulin Full code Advance directives discussed for 16 minutes Plan discussed with: Patient Date of Service: February 23, 2025 Billing Provider: KENNETH ELLIOTT MD Common Visit Codes: [id number] INP/OBS CARE(HIGH) Secondary Visit Codes: [id number] CARE PLAN 30 MINUTES KENNETH ELLIOTT MD February 23, 2025 12:18
[2025-02-23] MEDS: INSULIN LANTUS (GLARGINE) 1 /0.01ml (100units/ml) SC ONE (15:20)
[2025-02-23] MEDS: guaiFENesin-DM 100/10mg/5ml SYR PO PRN (17:46)
[2025-02-23] MEDS: INSULIN LANTUS (GLARGINE) 1 /0.01ml (100units/ml) SC SCH (22:29)
[2025-02-24] VITALS (13 sets, daily range): BP systolic 103–138; BP diastolic 55–78; PULSE 73–102; RESP 16–19; TEMP 97.5–97.9; O2SAT 93–100
--- NOTE | 2025-02-24 16:56 | DVHPN2 ---
Subjective Better Changes from previous H/P or p: Changes Eyes: No Pain, No Vision change, No Conjunctivae inflammation, No Eyelid inflammation, No Other, No Redness ENT: No Ear pain, No Ear discharge, No Nose pain, No Nose discharge, No Nose congestion, No Mouth pain, No Mouth swelling, No Throat pain, No Throat swelling, No Other Cardiovascular: No Chest Pain, No Palpitations, No Orthopnea, No Paroxysmal Noc. Dyspnea, No Edema, No Lt Headedness, No Other Respiratory: Cough; No Dry; Shortness of breath, SOB with excertion, Wheezing; No Hemoptysis, No Pleuritic Pain; Sputum (yellow/green); No Other Gastrointestinal: No Nausea, No Vomiting, No Abdominal Pain, No Diarrhea, No Constipation, No Melena, No Hematochezia, No Other Genitourinary: No Dysuria, No Frequency, No Incontinence, No Hematuria, No Retention, No Other Musculoskeletal: No other, No neck pain, No shoulder pain, No arm pain, No back pain, No hand pain, No leg pain, No foot pain Skin: No Rash, No Lesions, No Jaundice, No Bruising, No Other Objective Vitals Vital Signs Date Time Temp Pulse Resp B/P (MAP) Pulse Ox O2 Delivery O2 Flow Rate FiO2 02/24/25 13:00 97.9 85 17 116/66 (83) 97 97.9 02/24/25 11:20 Room Air 0.0 02/24/25 11:20 21 Intake/Output Intake and Output 02/24/25 07:00 Intake Total 800 ml Balance 800 ml Intake Oral 500 ml IV Total 300 ml # Voids 3 # Bowel Movements 1 General Appearance: Alert, Oriented X3, Cooperative, mild distress Lungs: Clear to auscultation, Normal air movement, Other (Clear to auscultation bilateral) Cardiovascular: Regular rate, Normal S1, Normal S2, No murmurs Abdomen: Normal bowel sounds, Soft, No tenderness Extremities: No edema Medications Current Medications Medications Dose Ordered Sig/Isidra Route Start Time Stop Time Status Last Admin Dose Admin Acetaminophen/ Hydrocodone Bitart 1 tab Q4HP PRN PO 02/22/25 13:00 Ondansetron HCl 4 mg Q4HP PRN IV 02/22/25 13:00 02/23/25 08:48 4 MG Docusate Sodium 100 mg BIDPRN PRN PO 02/22/25 13:00 Acetaminophen 650 mg Q6HP PRN PO 02/22/25 13:00 02/23/25 01:47 650 MG Morphine Sulfate 2 mg Q4HPRN PRN IV 02/22/25 13:00 Ceftriaxone Sodium 50 ml @ 100 mls/hr DAILY@09 IV 02/23/25 09:00 02/24/25 09:33 100 MLS/HR Albuterol 2.5 mg Q6HWA NEB 02/22/25 18:00 02/24/25 11:20 2.5 MG Ipratropium [place] 0.5 mg Q6HWA NEB 02/22/25 18:00 02/24/25 11:20 0.5 MG Methylprednisolone Sodium Succinate 40 mg BID IV 02/22/25 22:00 UNV Diagnostic Test (Pha) 1 strip ACHS 02/22/25 17:00 02/24/25 11:13 1 STRIP Insulin Human Regular HS SC 02/22/25 22:00 02/23/25 22:28 4 UNITS Insulin Human Regular AC SC 02/22/25 17:00 02/24/25 11:18 6 UNITS Dextrose 50 ml UD PRN IV 02/22/25 13:15 Patient Own Medication 1 tab DAILY PO 02/23/25 10:00 UNV Lisinopril 10 mg DAILY PO 02/23/25 10:00 02/24/25 09:33 10 MG Methylprednisolone Sodium Succinate 40 mg BID IV 02/22/25 22:00 02/24/25 09:31 40 MG Azithromycin 250 ml @ 125 mls/hr DAILY IV 02/23/25 10:00 02/24/25 11:12 125 MLS/HR Guaifenesin/ Dextromethorphan 10 ml Q4HP PRN PO 02/23/25 12:15 02/24/25 12:13 10 ML Insulin Glargine 20 units BID@0700,2200 SC 02/24/25 22:00 Laboratory Results Laboratory Tests 02/23/25 04:31 Microbiology Microbiology Date/Time Source Procedure Growth Status 02/23/25 13:11 Sputum Gram Stain - Final Resulted 02/23/25 13:11 Sputum Respiratory Culture - Preliminary Resulted 02/22/25 13:20 Blood Blood Culture - Preliminary NO GROWTH AFTER 48 HOURS OF INCUBATION. Resulted Assessment/Plan Assessment/Plan Acute upper respiratory infection Acute bronchitis Hypertension Type 2 diabetes Plan Continue IV antibiotics Oxygen as needed Med neb treatments as needed Robitussin DM as needed IV steroids Hold oral diabetes medications Start Lantus 10 units twice a day Accu-Cheks and sliding scale regular insulin Full code Advance directives discussed for 16 minutes 02/24/2025: Continue the current management with antibiotics and med neb treatments and oxygen as needed IV steroids Lantus Accu-Cheks Monitor closely Robitussin as needed Plan discussed with: Patient My Orders Orders - KENNETH ELLIOTT MD Procedure Category Date Status Time Insulin Lantus PHA 02/24/25 In Process (Glargine) (Lantus) 22:00 Date of Service: February 24, 2025 Billing Provider: KENNETH ELLIOTT MD Common Visit Codes: [id number] INP/OBS CARE(HIGH) KENNETH ELLIOTT MD February 24, 2025 16:56
[2025-02-24] MEDS: INSULIN LANTUS (GLARGINE) 1 /0.01ml (100units/ml) SC SCH (22:07)
[2025-02-25] VITALS (10 sets, daily range): BP systolic 103–139; BP diastolic 56–84; PULSE 72–99; RESP 16–18; TEMP 97.4–98.9; O2SAT 92–100
[2025-02-25] MEDS ORDERED: DOXY1CAP57 PO (12:12)
[2025-02-25] MEDS ORDERED: GUAI100S6 PO (12:13)
--- NOTE | 2025-02-25 15:00 | DVHDS2 ---
Discharge Summary Date of Admission February 22, 2025 at 13:00 Date of Discharge: February 25, 2025 Labs/Diagnostic Data: Laboratory Results Test 02/25/25 11:23 02/23/25 08:00 02/23/25 04:31 02/22/25 13:20 POC Glucose 243 mg/dl (70-106) Influenza Type A Antigen Negative (Negative) Influenza Type B Antigen Negative (Negative) SARS-CoV-2 Antigen (Rapid) Negative (NEGATIVE) White Blood Count 11.5 10^3/uL (4.4-10.8) Red Blood Count 4.83 10^6/uL (4.5-5.90) Hemoglobin 13.7 g/dL (13.5-17.5) Hematocrit 41.2 % (41.0-53.0) Mean Corpuscular Volume 85.2 fL (80.0-100.0) Mean Corpuscular Hemoglobin 28.4 pg (28.0-32.0) Mean Corpuscular Hemoglobin Concent 33.3 g/dL (32.0-36.0) Red Cell Distribution Width 14.0 % (11.8-14.3) Platelet Count 300 10^3/uL (140-450) Mean Platelet Volume 8.4 fL (6.9-10.8) Neutrophils (%) (Auto) 67.3 % (37.0-80.0) Lymphocytes (%) (Auto) 23.4 % (10.0-50.0) Monocytes (%) (Auto) 8.6 % (0.0-12.0) Eosinophils (%) (Auto) 0.5 % (0.0-7.0) Basophils (%) (Auto) 0.2 % (0.0-2.0) Neutrophils # (Auto) 7.7 10 ^3/uL (1.6-8.6) Lymphocytes # (Auto) 2.7 10 ^3/uL (0.4-5.4) Monocytes # (Auto) 1.0 10 ^3/uL (0-1.3) Eosinophils # (Auto) 0.1 10 ^3/uL (0-0.8) Basophils # (Auto) 0 10 ^3/uL (0-0.2) Nucleated Red Blood Cells 0.1 % Sodium Level 138 mmol/L (136-145) Potassium Level 3.9 mmol/L (3.5-5.1) Chloride Level 101 mmol/L (98-107) Carbon Dioxide Level 26 mmol/L (20-31) Anion Gap 11 (5-15) Blood Urea Nitrogen 14 mg/dL (9-23) Creatinine 1.04 mg/dL (0.700-1.30) Glomerular Filtration Rate Calc 95 mL/min (>90) BUN/Creatinine Ratio 13.5 (10.0-20.0) Serum Glucose 166 mg/dL (74-106) Calcium Level 9.0 mg/dL (8.7-10.4) Total Bilirubin 0.9 mg/dL (0.2-1.0) Aspartate Amino Transferase (AST) 19 U/L (13-40) Alanine Aminotransferase (ALT) 53 U/L (7-40) Alkaline Phosphatase 64 U/L (46-116) Total Protein 6.8 g/dL (5.7-8.2) Albumin 4.5 g/dL (3.2-4.8) Troponin I High Sensitivity < 3 ng/L (</=54) Test 02/22/25 10:24 D-Dimer, Quantitative 0.23 mg/L FEU (0.0-0.49) Other Laboratory Tests 02/23/25 04:31 Brief Hx & Hospital Course: Final diagnoses: Acute upper respiratory infection Acute bronchitis Hypertension Type 2 diabetes 34-year-old male with history of hypertension diabetes who had upper respiratory infection for few days now and then he was seen here in ER was sent home on an inhaler but he did not get better so he came back Chest x-ray is negative for pneumonia He is also negative for COVID and influenza He is still having significant cough productive of yellow sputum He was given IV antibiotics and IV steroids here in the hospital with med neb treatments and some cough medicine Overall he is doing better Today no wheezing The cough is better He will be discharged home on a course of doxycycline and Robitussin DM as needed Condition at Discharge: Stable Final Diagnosis/Problems List Acute upper respiratory infection Acute bronchitis Hypertension Type 2 diabetes Discharge Disposition: Home SNF Discharge Will this Physician continue t: No Discharge Instruct/Medications Diet: Consistent carbohydrate, Cardiac 2g Na,low cholest Activity: No Restrictions, As Tolerated Follow Up/Referral: PCP JULIANA Medications: Doxycycline 100 mg bid x 7 days Discharge Statement: "Patient was advised to return to the ER or call 911 if any headaches, dizziness, shortness of breath, chest pain, abdominal pain, bleeding, fevers, or worsening of medical condition. Patient was counseled about treatment plan, medications, possible side effects, patientverbalized understanding. All questions were answered to the best of my ability. This discharge took greater then 30 minutes in planning, reviewing documentation, counseling the patient, and discussing with other team members." ASSESSMENT ASSESSMENT Assessment Acute bronchitis Date of Service: February 25, 2025 Billing Provider: KENNETH ELLIOTT MD Common Visit Codes: [id number]/OBS DISCH DAY >30min KENNETH ELLIOTT MD February 25, 2025 15:00
== END 2025-02-25 13:38 | disposition home or self-care (01) | DRG 145 ==
LOC: ER 09:14 → OVERFLOW 13:00 → WEST WING 02-23 21:55
PROVIDERS: ADMIT Internal Medicine Geriatric Medicine; ATTEND Internal Medicine Geriatric Medicine
DX: J20.9 Acute bronchitis, unspecified (principal); R65.10 Systemic inflammatory response syndrome (SIRS) of non-infectious origin without acute organ dysfunction; J06.9 Acute upper respiratory infection, unspecified; D72.829 Elevated white blood cell count, unspecified; I10 Essential (primary) hypertension; E11.65 Type 2 diabetes mellitus with hyperglycemia; R00.0 Tachycardia, unspecified; Z20.822 Contact with and (suspected) exposure to COVID-19
CPT/HCPCS: 36415; 71045; 80048; 80053; 82962; 84484; 85025; 85379; 87040; 87070; 87077; 87186; 87205; 87426; 87804; 93005; 94640; 96365; 96375; 99291; G0378; J1815; J2405

== ENCOUNTER 2025-02-25 23:54 | Emergency (ER) | payer MEDICAID ==
[~2025-02-25] VITALS: Ht 154.9 cm; Wt 90.0 kg
[~2025-02-25 23:54] MED LIST changes: +DOXY1CAP57 PO; +GLIP5TAB21 PO; +GUAI100S6 PO; +LISI10TA34 PO; +METF-372 PO
--- NOTE | 2025-02-26 00:19 | ED.PDOC ---
SOB-HPI HPI Comments 34-year-old male who came to ER due to syncope. Has been having productive cough with yellowish sputum and shortness a breath for nearly a month. Has been on antibiotics and inhalers already but offered temporary relief. Was admitted 3 days ago, discharged today the diagnosis of acute bronchitis, sent home with doxycycline and Robitussin DM. However at home, while sitting on the sofa, he started coughing profusely again, productive with thick yellowish sputum, and he passed out, hitting his head on the coffee table as he went down. Noted right periorbital hematoma upon arrival. Chief Complaint: Syncope Time Seen by MD: 00:18 Primary Care Provider: NONE Reviewed notes: Nurses Notes Information Source: Patient Mode of Arrival: Ambulatory Severity: Moderate Timing: Hours Duration: Since onset Context: At Rest History of: Recent Antibiotic, Other (Acute bronchitis) Prehospital treatment: Breathing Tx Associated Signs and Symptoms: Wheeze, Cough, Chest Pain Quality: Tightness Radiation: No Radiation Location: Chest (R), Chest (L) If cough with SOB: Productive, Yellow Past Medical History PAST MEDICAL HISTORY: DM, HTN, UTI'S Surgical History: Denies all surgeries Family History Family History: Reviewed,noncontributory to illness Social History Smoker: Non-Smoker Alcohol: Denies ETOH Use Drugs: Denies Drug Use Lives In: Home Constitutional: denies: chills, diaphoresis, fatigue, fever, malaise, sweats, weakness, others EENTM: denies: blurred vision, double vision, ear bleeding, ear discharge, ear drainage, ear pain, ear ringing, eye pain, eye redness, hearing loss, mouth pain, mouth swelling, nasal discharge, nose bleeding, nose congestion, nose pain, photophobia, tearing, throat pain, throat swelling, voice changes, others Respiratory: reports: cough, SOB at rest, shortness of breath; denies: hemoptysis, orthopnea, SOB with excertion, stridor, wheezing, others Cardiovascular: denies: chest pain, dizzy spells, diaphoresis, Dyspnea on exertion, edema, irregular heart beat, left arm pain, lightheadedness, palpitations, PND, syncope, others Gastrointestinal: denies: abdomen distended, abdominal pain, blood streaked bowels, constipated, diarrhea, dysphagia, difficulty swallowing, hematemesis, melena, nausea, poor appetite, poor fluid intake, rectal bleeding, rectal pain, vomiting, others Genitourinary: denies: burning, dysuria, flank pain, frequency, hematuria, incontinence, penile discharge, penile sore, pain, testicle pain, testicle swelling, urgency, others Neurological: reports: fainting; denies: dizziness, headache, left sided numbness, left sided weakness, numbness, paresthesia, pre-existing deficit, right sided numbness, right sided weakness, seizure, speech problems, tingling, tremors, weakness, others Musculoskeletal: denies: back pain, gout, joint pain, joint swelling, muscle pain, muscle stiffness, neck pain, others Integumetry: denies: bruises, change in color, change in hair/nails, dryness, laceration, lesions, lumps, rash, wounds, others Allergic/Immunocompromised: denies: Difficulty Healing, Frequent Infections, Hives, Itching, others Hematologic/Lymphatic: denies: anemia, blood clots, easy bleeding, easy bruising, swollen glands, others Endocrine: denies: excessive hunger, excessive sweating, excessive thirst, excessive urination, flushing, intolerance to cold, intolerance to heat, unexplained weight gain, unexplained weight loss, others Psychiatric: denies: anxiety, bipolar disorder, depression, hopeless, panic disorder, schizophrenia, sleepless, suicidal, others Physical Exam General Appearance: No Apparent Distress, Normal HEENT: Normal ENT Inspection, Pharynx Normal, TMs Normal Neck: Full Range of Motion, Non-Tender, Normal, Normal Inspection Respiratory: Chest Non-Tender, Lungs Clear, No Accessory Muscle Use, No Respiratory Distress, Normal Breath Sounds Cardiovascular: No Edema, No JVD, No Murmur, No Gallop, Normal Peripheral Pulses, Regular Rate/Rhythm Breast Exam: Deferred Gastrointestinal: No Organomegaly, Non Tender, No Pulsatile Mass, Normal Bowel Sounds, Soft Genitalia: Deferred Pelvic: Deferred Rectal: Deferred Extremities: No calf tenderness, Normal capillary refill, Normal inspection, Normal range of motion, Non-tender, No pedal edema Musculoskeletal : Apperance: Normal Neurologic: Alert, sugar cane planter II-XII nml as Tested, No Motor Deficits, Normal Affect, Normal Mood, No Sensory Deficits Cerebellar Function: Normal Reflexes: Normal Skin: Dry, Normal Color, Warm Lymphatic: No Adenopathy Was a procedure done? Was a procedure done?: No Differential Dx Differential Diagnosis: Bronchitis, Hyperventilation, Pneumonia, Respiratory Distress, URI, Other (Syncope) X-Ray, Labs, Meds, VS Vital Signs Date Time Temp Pulse Resp B/P (MAP) Pulse Ox O2 Delivery O2 Flow Rate FiO2 02/26/25 01:47 62 16 120/78 02/26/25 01:43 62 16 96 Room Air* 0 21 02/26/25 01:43 62 16 120/78 (92) 96 02/26/25 00:15 98.1 90 23 114/71 (85) 97 98.1 Lab Test 02/26/25 01:25 02/26/25 00:23 Range/Units Troponin I High Sensitivity 10 7 </=54 ng/L White Blood Count 22.1 #H 4.4-10.8 10^3/uL Red Blood Count 5.29 4.5-5.90 10^6/uL Hemoglobin 15.1 13.5-17.5 g/dL Hematocrit 45.2 41.0-53.0 % Mean Corpuscular Volume 85.5 80.0-100.0 fL Mean Corpuscular Hemoglobin 28.5 28.0-32.0 pg Mean Corpuscular Hemoglobin Concent 33.3 32.0-36.0 g/dL Red Cell Distribution Width 14.1 11.8-14.3 % Platelet Count 376 140-450 10^3/uL Mean Platelet Volume 8.2 6.9-10.8 fL Neutrophils (%) (Auto) 72.4 37.0-80.0 % Lymphocytes (%) (Auto) 19.6 10.0-50.0 % Monocytes (%) (Auto) 7.3 0.0-12.0 % Eosinophils (%) (Auto) 0.1 0.0-7.0 % Basophils (%) (Auto) 0.6 0.0-2.0 % Neutrophils # (Auto) 16.0 H 1.6-8.6 10 ^3/uL Lymphocytes # (Auto) 4.3 0.4-5.4 10 ^3/uL Monocytes # (Auto) 1.6 H 0-1.3 10 ^3/uL Eosinophils # (Auto) 0 0-0.8 10 ^3/uL Basophils # (Auto) 0.1 0-0.2 10 ^3/uL Nucleated Red Blood Cells 0.0 % Sodium Level 132 #L 136-145 mmol/L Potassium Level 4.1 3.5-5.1 mmol/L Chloride Level 101 98-107 mmol/L Carbon Dioxide Level 22 20-31 mmol/L Anion Gap 9 5-15 Blood Urea Nitrogen 28 H 9-23 mg/dL Creatinine 1.17 0.700-1.30 mg/dL Glomerular Filtration Rate Calc 83 >90 mL/min BUN/Creatinine Ratio 23.9 H 10.0-20.0 Serum Glucose 160 H 74-106 mg/dL Lactic Acid Level 1.8 0.4-2.0 mmol/L Calcium Level 9.1 8.7-10.4 mg/dL Magnesium Level 2.2 1.6-2.6 mg/dL Total Bilirubin 0.5 0.2-1.0 mg/dL Aspartate Amino Transferase (AST) 14 13-40 U/L Alanine Aminotransferase (ALT) 41 H 7-40 U/L Alkaline Phosphatase 75 46-116 U/L Total Protein 7.2 5.7-8.2 g/dL Albumin 4.8 3.2-4.8 g/dL Current Medications Medications (Trade) Dose Ordered Sig/Isidra Route Start Time Stop Time Status Last Admin Ondansetron HCl (Zofran) 4 mg ONCE ONCE IV 02/26/25 00:15 02/26/25 00:16 DC 02/26/25 01:48 Sodium Chloride 1,000 ml @ 1,000 mls/hr Q1H ONCE IVB 02/26/25 00:15 02/26/25 01:14 DC 02/26/25 01:47 Morphine Sulfate 4 mg ONCE ONCE IV 02/26/25 00:15 02/26/25 00:16 DC 02/26/25 01:47 Ceftriaxone Sodium 50 ml @ 100 mls/hr ONCE ONCE IV 02/26/25 00:15 02/26/25 00:44 DC 02/26/25 01:47 EXAM: CT ORBITS WO CONTRAST HISTORY: syncope pain / injury COMPARISON: None TECHNIQUE: Axial images were obtained and reformatted in coronal and sagittal planes. All CT scans at this medical facility are performed using dose modulation techniques as appropriate to a performed exam including the following: Automated exposure control was utilized; adjustment of the MA and/or KV according to patient size; and use of iterative reconstruction technique. CT Dose: CTDI volume is 67 mGy. Dose-length product is 807 mGy*cm Findings/impression: Right inferior orbital wall fracture with herniation of retrobulbar fat. No evidence of extraocular muscle entrapment. Foci of air seen in the retrobulbar fat and in the soft tissue of the right face. Fluid layering in the right maxillary sinus most likely representing blood products. EXAM: CT HEAD WITHOUT CONTRAST INDICATION: syncope, injury pain TECHNIQUE: CT of the head without intravenous contrast. Radiation Dose : 1. Head: CT Dose: CTDI volume is 61 mGy. Dose-length product is 1072 mGy*cm The dose indicators for CT are the volume Computed Tomography (CT) Dose Index (CTDIvol) and the Dose Length Product (DLP), and are measured in units of mGy and mGy-cm, respectively. These indicators are not patient dose, but values generated from the CT scanner acquisition factors. The report includes radiation exposure data for exposures received during this examination. COMPARISON: None FINDINGS: There is no evidence of acute intracranial hemorrhage, extra-axial collection, mass effect, midline shift, herniation or hydrocephalus. The ventricles, sulci and cisterns are age appropriate. The narvaez-white differentiation is intact. Patchy periventricular and subcortical white matter hypoattenuation is nonspecific but may be related to small vessel ischemic disease. Right inferior orbital wall fracture with herniation of retrobulbar fat. No evidence of extraocular muscle entrapment. Foci of air seen in the retrobulbar fat and in the soft tissue of the right face. Fluid layering in the right maxillary sinus most likely representing blood products. IMPRESSION: No acute intracranial abnormality. Right inferior orbital wall fracture with herniation of retrobulbar fat. No evidence of extraocular muscle entrapment. Foci of air seen in the retrobulbar fat and in the soft tissue of the right face. Fluid layering in the right maxillary sinus most likely representing blood products. Time of 1ST Reevaluation: 00:10 Reevaluation 1ST: Unchanged Patient Education/Counseling: Diagnosis, Treatment Family Education/Counseling: No Family Present Departure 1 Departure Time of Disposition: 02:41 Impression: Primary Impression: Syncope and collapse Additional Impressions: Orbital fracture Bronchitis Disposition: [address] [place] [address] Admit to: Tele Condition: Guarded Comments Right Orbital Fracture after Syncope Chief Complaint: Facial injury and periorbital swelling after syncopal episode History of Present Illness: 34-year-old male with history of type 2 diabetes and hypertension presents to the ED after a syncopal episode at home. Patient reports having a coughing fit while drinking coffee, followed by a syncopal episode where he fell forward and struck his face. He was recently treated for bronchitis and is currently taking doxycycline. After the fall, he developed swelling and pain around the right periorbital area. Patient's ongoing symptoms include continued cough from his bronchitis. Review of Systems: Constitutional: Positive for syncope HEENT: Positive for periorbital pain and swelling Respiratory: Positive for persistent cough All other systems reviewed and negative Medications: 1. Doxycycline (current) 2. Medications for diabetes (specifics not provided) 3. Antihypertensive medications (specifics not provided) Allergies: No known allergies documented Past Medical History: 1. Type 2 Diabetes Mellitus 2. Hypertension 3. Recent bronchitis Lab Results: WBC: 22, 000 (Elevated) Glucose: 160 Sodium: 132 (Low) BUN: 28 (Elevated) Imaging and Other Relevant Results: CT Head and Orbits: - Right inferior orbital fracture identified - Herniated fat tissue present Medical Decision Making: Summary Statement: 34-year-old male with type 2 diabetes and active bronchitis who sustained right orbital fracture after syncope, requiring specialized surgical evaluation Problem List: 1. Right orbital fracture 2. Syncope 3. Active bronchitis 4. Leukocytosis 5. Type 2 diabetes 6. Hypertension Differential Diagnosis: 1. Orbital floor fracture with tissue herniation 2. Vasovagal syncope secondary to coughing 3. Cardiac syncope 4. Bacterial bronchitis 5. COVID-19 ED Course: Patient evaluated with CT imaging confirming orbital fracture. Transfer arranged to [facility] for OMFS and ophthalmology consultation. Labs reveal elevated WBC count suggesting ongoing infection. Assessment and Plan: 1. Right Inferior Orbital Fracture - Transfer accepted to [facility] - Requires OMFS and ophthalmology consultation - Likely will require surgical intervention 2. Syncope - Likely secondary to coughing fit - Requires inpatient evaluation 3. Bronchitis with Leukocytosis - Continue doxycycline - Monitor respiratory status 4. Type 2 Diabetes - Continue home medications - Monitor glucose levels 5. Disposition: Transfer to [facility] for higher level of care Billing Information: ICD-10: S02.3XXA - Fracture of orbital floor, initial encounter ICD-10: R55 - Syncope and collapse ICD-10: J20.9 - Acute bronchitis, unspecified ICD-10: E11.9 - Type 2 diabetes mellitus without complications ICD-10: I10 - Essential (primary) hypertension Critical Care Note Critical Care Time?: Yes (35 min-critical care time only) Critical care comment: Total critical care time: Approximately 36 minutes Due to a high probability of clinically significant, life threatening de terioration, the patient required my highest level of preparedness to intervene emergently and I personally spent this critical care time directly and personally managing the patient. This critical care time included obtaining a history; examining the patient; pulse oximetry; ordering and review of studies; arranging urgent treatment with development of a management plan; evaluation of patient's response to treatment; frequent reassessment; and, discussions with other providers. This critical care time was performed to assess and manage the high probability of imminent, life-threatening deterioration that could result in multi-organ failure. It was exclusive of separately billable procedures and treating other patients. Stability Stability form required: No Heart Score Heart Score: Heart Score Response (Comments) Value History N/A 0 EKG N/A 0 Age N/A 0 Risk Factors N/A 0 Troponin N/A 0 Total 0 I personally scribed for KATIE ANDERSON MD ([email or web address]) on 02/26/25 at 00:19. Electronically submitted by Trevon Figueroa ([email or web address]). I personally scribed for KATIE ANDERSON MD ([email or web address]) on 02/26/25 at 01:25. Electronically submitted by Trevon Figueroa ([email or web address]). KATIE ANDERSON MD February 26, 2025 00:19
[2025-02-26 00:38] LABS: Basophils # (auto) 0.1 10 ^3/uL (0-0.2); Basophils % (auto) 0.6 % (0.0-2.0); Eosinophils # (auto) 0 10 ^3/uL (0-0.8); Eosinophils % (auto) 0.1 % (0.0-7.0); Hematocrit 45.2 % (41.0-53.0); Hemoglobin 15.1 g/dL (13.5-17.5); Lymphocytes # (auto) 4.3 10 ^3/uL (0.4-5.4); Lymphocytes % (auto) 19.6 % (10.0-50.0); Mean Corpuscular Hemoglobin 28.5 pg (28.0-32.0); Mean Corpuscular Hgb Conc. 33.3 g/dL (32.0-36.0); Mean Corpuscular Volume 85.5 fL (80.0-100.0); Monocytes # (auto) 1.6 10 ^3/uL (0-1.3); Monocytes % (auto) 7.3 % (0.0-12.0); Neutrophils % (auto) 72.4 % (37.0-80.0); Platelet Count (auto) 376 10^3/uL (140-450); Red Blood Cells 5.29 10^6/uL (4.5-5.90); Red Cell Distribution Width 14.1 % (11.8-14.3); White Blood Cell 22.1 10^3/uL (4.4-10.8)
[2025-02-26 00:56] LABS: Alkaline Phosphatase 75 U/L (46-116); Anion Gap 9 (5-15); Aspartate Aminotransferase 14 U/L (13-40); BUN/Creatinine Ratio 23.9 (10.0-20.0); Calcium 9.1 mg/dL (8.7-10.4); Carbon Dioxide 22 mmol/L (20-31); Chloride 101 mmol/L (98-107); Magnesium 2.2 mg/dL (1.6-2.6); Potassium 4.1 mmol/L (3.5-5.1); Total Protein 7.2 g/dL (5.7-8.2)
[2025-02-26 00:57] LABS: Bilirubin, Total 0.5 mg/dL (0.2-1.0)
[2025-02-26 00:58] LABS: Alanine Aminotransferase 41 U/L (7-40); Albumin 4.8 g/dL (3.2-4.8); Blood Urea Nitrogen 28 mg/dL (9-23); Glucose 160 mg/dL (74-106); Sodium 132 mmol/L (136-145)
--- NOTE | 2025-02-26 01:05 | DVH ---
EXAM: CT HEAD WITHOUT CONTRAST INDICATION: syncope, injury pain TECHNIQUE: CT of the head without intravenous contrast. Radiation Dose : 1. Head: CT Dose: CTDI volume is 61 mGy. Dose-length product is 1072 mGy*cm The dose indicators for CT are the volume Computed Tomography (CT) Dose Index (CTDIvol) and the Dose Length Product (DLP), and are measured in units of mGy and mGy-cm, respectively. These indicators are not patient dose, but values generated from the CT scanner acquisition factors. The report includes radiation exposure data for exposures received during this examination. COMPARISON: None FINDINGS: There is no evidence of acute intracranial hemorrhage, extra-axial collection, mass effect, midline s hift, herniation or hydrocephalus. The ventricles, sulci and cisterns are age appropriate. The narvaez-white differentiation is intact. Patchy periventricular and subcortical white matter hypoattenuation is nonspecific but may be related to small vessel ischemic disease. Right inferior orbital wall fracture with herniation of retrobulbar fat. No evidence of extraocular muscle entrapment. Foci of air seen in the retrobulbar fat and in the soft tissue of the right face. Fluid layering in the right maxillary sinus most likely representing blood products. IMPRESSION: No acute intracranial abnormality. Right inferior orbital wall fracture with herniation of retrobulbar fat. No evidence of extraocular m uscle entrapment. Foci of air seen in the retrobulbar fat and in the soft tissue of the right face. F luid layering in the right maxillary sinus most likely representing blood products.
--- NOTE | 2025-02-26 01:10 | DVH ---
EXAM: CT ORBITS WO CONTRAST HISTORY: syncope pain / injury COMPARISON: None TECHNIQUE: Axial images were obtained and reformatted in coronal and sagittal planes. All CT scans at this medical facility are performed using dose modulation techniques as appropriate t o a performed exam including the following: Automated exposure control was utilized; adjustment of th e MA and/or KV according to patient size; and use of iterative reconstruction technique. CT Dose: CTDI volume is 67 mGy. Dose-length product is 807 mGy*cm Findings/impression: Right inferior orbital wall fracture with herniation of retrobulbar fat. No evidence of extraocular m uscle entrapment. Foci of air seen in the retrobulbar fat and in the soft tissue of the right face. F luid layering in the right maxillary sinus most likely representing blood products.
[2025-02-26 01:43] VITALS: PULSE 62; RESP 16; O2SAT 96
[2025-02-26] MEDS: cefTRIAXone 1GM/50ML D5W 50 ML IV ONE (01:47)
[2025-02-26] MEDS: MORPHINE SULFATE 4 MG/ML SYR/VIAL IV ONE ×3 (01:47→04:19)
[2025-02-26] MEDS: SODIUM CHLORIDE 0.9% 1,000 ML IVB ONE (01:47)
[2025-02-26] MEDS: ONDANSETRON HCL 4 MG/2 ML VIAL IV ONE ×2 (01:48→04:18)
[2025-02-26] MEDS: AZITHROMYCIN 500MG/ 250ML 250 ML IV ONE (03:30)
[2025-02-26 04:30] VITALS: BP 117/70; PULSE 86; RESP 18; TEMP 97.9; O2SAT 96
== END 2025-02-26 04:24 | disposition short-term general hospital (02) ==
LOC: ER 23:54
DX: S02.31XA Fracture of orbital floor, right side, initial encounter for closed fracture (principal); J40 Bronchitis, not specified as acute or chronic; R55 Syncope and collapse; Z87.440 Personal history of urinary (tract) infections; D72.829 Elevated white blood cell count, unspecified; E11.9 Type 2 diabetes mellitus without complications; I10 Essential (primary) hypertension; W22.03XA Walked into furniture, initial encounter; Y93.89 Activity, other specified; Y92.098 Other place in other non-institutional residence as the place of occurrence of the external cause; Y99.8 Other external cause status
CPT/HCPCS: 36415; 70450; 70480; 80053; 82947; 83605; 83735; 84484; 85025; 87040; 96365; 96367; 96375; 96376; 99285; J0456; J0696; J2270; J2405; J7030